=== PATIENT | male | born 1940 | race Caucasian/White ===

== ENCOUNTER → 2017-09-26 | Outpatient (CLI) | payer OTHER ==
--- NOTE | ~2017-09-26 | EKG ---
[place] [address] [facility] [place] [address] ELECTROCARDIOGRAM REPORT Name: KENNY ARIASLO Room #: REG [facility] John#: [id number] Admission: 09/26/17 Attend Phys: Barrett Blanco Discharge: Date of : 42 Report #: [id number] THIS REPORT FOR: //name// [facility] Test Date: 2017-09-26 Test Time: 15:24:24 Pat Name: KAYLEY ARIAS Department: Room: Gender: Reverse Logistics Analyst: [place] WING : 1940 Requested By: Barrett Rider Order Number: [id number] MD: Taye Bryant Measurements Intervals [place] Rate: 59 P: 12 AK: 175 QRS: -51 QRSD: 98 T: 9 QT: 436 QTc: 432 Interpretive Statements Sinus rhythm Left anterior fascicular block Abnormal R-wave progression, late transition Left ventricular hypertrophy No previous ECG available for comparison Electronically Signed On 09-27-2017 9:45:47 CDT by Taye Bryant [email or web address] <ELECTRONICALLY SIGNED> By: Taye Bryant MD, [facility] 09/27/17 0945 1524 1524 Taye Bryant MD, [facility] /EPI
[2017-09-26 14:45] LABS: ABSOLUTE NEUTROPHILS 5.6 thou/uL (1.4-8.2); BASOPHILS 0.4 % (0.0-2.0); EOSINOPHILS 3.1 % (0.0-3.0); HEMATOCRIT 47.8 % (42.0-52.0); HEMOGLOBIN 16.1 gm/dL (14.0-18.0); LYMPHOCYTES 19.7 % (24.0-44.0); MCH 30.4 pg (26.0-34.0); MCHC 33.7 g/dL (28.0-37.0); MCV 90.2 fL (80.0-100.0); MONOCYTES 8.1 % (1.0-8.0); PLATELET COUNT 145 thou/uL (150-400); POLYS 68.7 % (36.0-66.0); RDW 13.7 % (10.5-14.5); WBC 8.1 thou/uL (4.0-11.0)
[2017-09-26 14:54] LABS: CALCIUM 9.2 mg/dL (8.5-10.1); CREATININE 0.9 mg/dL (0.7-1.3)
[2017-09-26 15:00] LABS: TOTAL BILIRUBIN 0.5 mg/dL (<0.1-1.0); TOTAL PROTEIN 7.4 g/dL (6.4-8.2)
== END ==
LOC: LABMALL 14:10
PROVIDERS: Surgery
DX: Z01.818 Encounter for other preprocedural examination (principal); R79.89 Other specified abnormal findings of blood chemistry

== ENCOUNTER 2017-10-04 05:26 | Day surgery (SDC) | payer OTHER ==
[~2017-10-04] VITALS: Ht 177.8 cm; Wt 90.7 kg
[~2017-10-04 05:26] MED LIST: BALANCE B-1001 EACH PO; BIOTIN10 MG PO; CALCIUM WITH M1 EACH PO; CAYENNE PO; COD LIVER OIL473 ML PO; VITAMIN E1000 UNI2 PO
[2017-10-04 07:10] VITALS: BP 140/85
[2017-10-04] MEDS ORDERED: NORFLEX100 MG PO (09:53)
[2017-10-04] MEDS ORDERED: ONDANSETRON HCL4 M2 PO (09:53)
[2017-10-04] MEDS ORDERED: HYDROCODONE-AP1 EAC6 PO (09:53)
[2017-10-04 10:15] VITALS: BP 140/85
== END 2017-10-04 11:10 | disposition home or self-care (01) ==
LOC: OR 05:26 → TBA 05:26 → OR 07:32
DX: K40.00 Bilateral inguinal hernia, with obstruction, without gangrene, not specified as recurrent (principal); D17.6 Benign lipomatous neoplasm of spermatic cord; Z98.890 Other specified postprocedural states; Z79.891 Long term (current) use of opiate analgesic
CPT/HCPCS: 49000; 50010; 50101; 62110; 62900; 70005